=== PATIENT | female | born 1955 | race Caucasian/White ===

== ENCOUNTER 2020-05-25 18:18 | Emergency (ER) | payer BC ==
[~2020-05-25] VITALS: Ht 157.5 cm; Wt 80.9 kg
[2020-05-25] MEDS ORDERED: ZETI10TA16 PO (18:39)
[2020-05-25] MEDS ORDERED: NP T60TA PO (18:39)
[2020-05-25] MEDS ORDERED: METO1TAB32 PO (18:39)
[2020-05-25] MEDS ORDERED: RABE1TAB PO (18:39)
[2020-05-25] MEDS ORDERED: LOSA50TA5 PO (18:39)
[2020-05-25] MEDS ORDERED: TOPR25TA PO (18:39)
[2020-05-25] MEDS ORDERED: diphenhydrAMINE 50MG/ML VIAL (J1200) IV STA (18:40)
[2020-05-25] MEDS ORDERED: methylPREDNISolone 125MG 2ML VIAL IV ONE (18:45)
[2020-05-25] MEDS ORDERED: FAMOTIDINE INJ 20MG/2ML VIAL (S0028 PER 1) IVP ONE (18:45)
[2020-05-25] MEDS ORDERED: ASPIRIN 81 MG CHEW TABLET PO ONE (18:45)
[2020-05-25 19:00] LABS: BASO # 0.1 10^3/uL (0.0-0.2); BASO % 0.6 % (0.0-1.0); EOS # 0.1 10^3/uL (0.0-0.5); EOS % 1.1 % (0.0-3.0); HEMATOCRIT 46.2 % (36.0-47.0); HEMOGLOBIN 14.3 g/dl (12.0-15.5); LYMPH # 2.9 10^3/uL (1.5-5.0); LYMPH % 24.9 % (24.0-44.0); MEAN CORPUSCULAR VOLUME 90.4 fl (80.0-96.0); MONO # 0.8 10^3/uL (0.0-0.8); NEUTROPHILS # 7.6 10^3/uL (1.5-8.5); NEUTROPHILS % 66.1 % (36.0-66.0); PLATELET COUNT, AUTOMATED 349 10^3/uL (150-450); RED BLOOD COUNT 5.11 10^6/uL (4.00-5.40); WHITE BLOOD COUNT 11.6 10^3/uL (4.0-10.0)
[2020-05-25 19:14] LABS: INR 0.95; PROTHROMBIN TIME 12.9 SECONDS (12.5-14.3)
[2020-05-25 19:15] LABS: PARTIAL THROMBOPLASTIN TIME 23.9 SECONDS (24.2-38.5)
[2020-05-25 19:17] LABS: D-DIMER QUANT 389.85 ng/ml (<500)
[2020-05-25 19:47] LABS: ALBUMIN 4.1 GM/DL (3.2-5.2); ALT/SGPT 39 U/L (12-78); BILIRUBIN,DIRECT 0.1 MG/DL (0.0-0.2); BILIRUBIN,TOTAL 0.2 MG/DL (0.2-1.0); BLOOD UREA NITROGEN 19 MG/DL (7-18); CALCIUM LEVEL 9.5 MG/DL (8.8-10.2); CARBON DIOXIDE LEVEL 30 MEQ/L (21-32); CHLORIDE LEVEL 104 MEQ/L (98-107); CPK CREATINE PHOSPHOKINASE 199 U/L (26-192); CREATININE FOR GFR 1.02 MG/DL (0.55-1.30); GLOMERULAR FILTRATION RATE 58.1 (>45); GLUCOSE, FASTING 128 MG/DL (70-100); LIPASE 199 U/L (73-393); MB/CK RELATIVE INDEX 1.01 (< OR =4); POTASSIUM SERUM 3.5 MEQ/L (3.5-5.1); SODIUM LEVEL 141 MEQ/L (136-145); TOTAL PROTEIN 7.9 GM/DL (6.4-8.2); TROPONIN I < 0.02 NG/ML (< 0.10)
[2020-05-25 19:48] LABS: FREE T4 1.07 NG/DL (0.76-1.46)
--- NOTE | 2020-05-25 20:58 | REPVR ---
PROCEDURE INFORMATION: Exam: XR Chest, 2 Views Exam date and time: 05/25/2020 8:09 PM Age: 64 years old Clinical indication: Chest pain TECHNIQUE: Imaging protocol: XR of the chest Views: 2 views. COMPARISON: No relevant prior studies available. FINDINGS: Lungs: Unremarkable. No consolidation. Pleural space: Unremarkable. No pleural effusion. No pneumothorax. Heart/Mediastinum: Unremarkable. No cardiomegaly. Bones/joints: Skeletal degenerative changes are noted. IMPRESSION: No acute findings. Electronically signed by: Tray Angeles On 05/25/2020 20:59:00 PM
[2020-05-26 01:00] LABS: CK-MB VALUE MASS 1.7 NG/ML (<3.6); CPK CREATINE PHOSPHOKINASE 165 U/L (26-192); MB/CK RELATIVE INDEX 1.03 (< OR =4); TROPONIN I < 0.02 NG/ML (< 0.10)
[2020-05-26 03:00] VITALS: BP 154/72
--- NOTE | 2020-05-26 06:41 | ECGEPIP ---
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
--- NOTE | 2020-05-26 06:45 | ECGEPIP ---
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
== END 2020-05-26 03:05 | disposition home or self-care (01) ==
LOC: M ED 18:18
DX: R10.13 Epigastric pain (principal); R79.89 Other specified abnormal findings of blood chemistry; R74.01 Elevation of levels of liver transaminase levels; I10 Essential (primary) hypertension; E07.9 Disorder of thyroid, unspecified; E78.5 Hyperlipidemia, unspecified; K21.9 Gastro-esophageal reflux disease without esophagitis; Z79.899 Other long term (current) drug therapy; Z79.890 Hormone replacement therapy; Z88.0 Allergy status to penicillin
CPT/HCPCS: 71046; 80048; 80076; 82550; 82553; 83690; 84439; 84443; 84484; 85025; 85379; 85610; 85730; 87631; 93005; 93041; 94760; 96374; 96375; 99285; J1200; J2930